=== PATIENT | male | born 1975 | race Caucasian/White ===

== ENCOUNTER 2025-01-30 07:17 | Inpatient (IN) ==
--- NOTE | 2025-01-02 16:13 | PAT Medication Instructions ---
Medication Instructions Date of Service January 02, 2025 Home Medications atorvastatin 10 mg tablet 10 mg PO QAM celecoxib 200 mg capsule 200 mg PO QAM cholecalciferol (vitamin D3) 25 mcg (1,000 unit) capsule (Vitamin D3) 25 mcg PO HS duloxetine 60 mg capsule,delayed release 60 mg PO QAM gabapentin 300 mg capsule 300 mg PO HS lisinopril 10 mg tablet 10 mg PO QAM sertraline 100 mg tablet 200 mg PO QAM tramadol 50 mg tablet 50 mg PO QAM ASK your surgeon for instructions celecoxib 200 mg capsule 200 mg PO QAM DO NOT take the morning of surgery lisinopril 10 mg tablet 10 mg PO QAM Take morning of surgery With a small sip of water, OTHERWISE NOTHING TO EAT OR DRINK AFTER MIDNIGHT: atorvastatin 10 mg tablet 10 mg PO QAM duloxetine 60 mg capsule,delayed release 60 mg PO QAM sertraline 100 mg tablet 200 mg PO QAM tramadol 50 mg tablet 50 mg PO QAM Take evening before surgery cholecalciferol (vitamin D3) 25 mcg (1,000 unit) capsule (Vitamin D3) 25 mcg PO HS gabapentin 300 mg capsule 300 mg PO HS Other Notes If you have any questions please call us at [phone] or [phone] or [phone] or [phone]
--- NOTE | 2025-01-09 11:11 | Anesthesiology Consultation ---
Date of Service January 09, 2025 Assessment & Plan (1) Encounter for pre-operative examination: Chart Review Chart Review: Acceptable Risk for Surgery (pending surgeon ordered PCP clearance ) and Patient seen in Pre Admission Testing - Awaiting surgeon ordered PCP clearance 01/11/25 (Dr Iglesia Bravo- [facility] - please fax preop testing for PCP review Per PAT appt on 01/09/25, no recent illness/disease exposures, illness related symptoms, or recent illness/disease positive tests. Will leave to surgeon's discretion if preop Covid testing needed Teaching & Discussion Pre-Anesthesia Teaching/Discussion Notes: Instructed NPO after midnight before surgery,except medications with 15 cc of water. Medication instructions provided according to the PAT guidelines. History Surgery Operation Date: 01/30/25 07:45 Proposed Procedures p L4-L5 Decompression and Fusion - Leo Mendez DO Height/Weight Height: 6 ft 2 in Weight: 109.7 kg Allergies Allergy/AdvReac Type Severity Reaction Status Date / Time bupropion [From Wellbutrin] AdvReac mood swings Verified 12/29/24 15:01 Medications Home Medications Medication Instructions Recorded Confirmed Last Taken atorvastatin 10 mg tablet 10 mg PO QAM 12/29/24 12/29/24 Unknown celecoxib 200 mg capsule 200 mg PO QAM 12/29/24 12/29/24 Unknown cholecalciferol (vitamin D3) 25 25 mcg PO HS 12/29/24 12/29/24 Unknown mcg (1,000 unit) capsule (Vitamin D3) duloxetine 60 mg capsule,delayed 60 mg PO QAM 12/29/24 12/29/24 Unknown release gabapentin 300 mg capsule 300 mg PO HS 12/29/24 12/29/24 Unknown lisinopril 10 mg tablet 10 mg PO QAM 12/29/24 12/29/24 Unknown sertraline 100 mg tablet 200 mg PO QAM 12/29/24 12/29/24 Unknown tramadol 50 mg tablet 50 mg PO QAM 12/29/24 12/29/24 Unknown Past Medical History Medical History (Updated 01/09/25 @ 14:40 by Tracy Loomis PA-C) Depression History of hypothyroidism on meds years ago, no recent issues or meds TSH WNL 01/09/25 HLD (hyperlipidemia) HTN (hypertension) Sleep apnea CPAP Exercise / Class Metabolic Activity II 4-5 Yardwork/Stairs/Walk up hill (one flight of stairs - no chest pain or SOB ) Past Surgical History Surgical History History of open reduction and internal fixation (ORIF) procedure rt clavicle>hardware intact History of photorefractive keratectomy (PRK) rt/ lt Hx of appendectomy Hx of colonoscopy Hx of right inguinal hernia repair Past Anesthesia History No Hx of Anesthesia Complications and No Family Hx of Anesthesia Complications History of PONV No Hx of PONV and No Hx of Motion Sickness Social History Smoking Status: Former smoker Do You Dip or Chew Tobacco: No Smoking End Date: 2005 Hx Alcohol Use: Yes alcohol intake frequency: holidays/special occasions only Hx Substance Use: Yes substance use type: marijuana Last Used Substance Other:: daily use, vape Review of Systems Patient denies chest pain, shortness of breath, dyspnea on exertion, reflux, cough, wheezing, palpitations. No hx of seizures, stroke, HI. No hx of blood clots or blood transfusions Physical Exam Vital Signs VITALS BP 124/82 P 58 TEMP 97.8 SP02 97% RESP 16 Constitutional no acute distress ENMT Mouth: no TMJ clicking Thyromental Distance: > or= 3.5 Finger Breadths (3.5) Mallampati Class: II Cap to one of the top front teeth Missing molar Neck + limited neck extension and + facial hair (advised to shave/trim ) Respiratory normal respiratory effort; no respiratory distress Auscultation: lungs clear to auscultation bilaterally; no wheezes Cardiovascular Rate/Rhythm: regular rate and regular rhythm Heart Sounds: no murmur Vessels: no carotid bruit Musculoskeletal Spine: + pain with cervical ROM Extremities: extremities normal to inspection Psychiatric Orientation: alert Lab Results Anesthesia Preop Results Results Anesthesia Widget: WBC 4.73 K/ul (4.8-10.8) L 01/09/25 Hgb 16.4 g/dl (14.0-18.0) 01/09/25 Hct 47.1 % (42.0-52.0) 01/09/25 Plt 150 K/uL (130-400) 01/09/25 Na 137 mmol/L (136-145) 01/09/25 K 4.3 mmol/L (3.5-5.1) 01/09/25 Cl 101 mmol/L (98-107) 01/09/25 CO2 30 mmol/L (21-32) 01/09/25 BUN 19 mg/dl (6-23) 01/09/25 Creat 1.01 mg/dl (0.6-1.4) 01/09/25 Glucose Level 102 mg/dl (70-99(Fasting)) H 01/09/25 PT 10.8 Seconds (9.0-12.0) 01/09/25 PTT 28 Seconds (21-31) 01/09/25 INR 1.0 (0.9-1.1) 01/09/25 TSH 1.407 uIu/ml (0.300-4.500) 01/09/25 Urine Color Yellow 01/09/25 Urine Appearance Clear (Clear) 01/09/25 Urine pH 6.0 (4.5-7.5) 01/09/25 Urine Specific Gray 1.024 (1.000-1.030) 01/09/25 Urine Protein Negative (Negative) 01/09/25 Urine Glucose (UA) Negative (Negative) 01/09/25 Urine Ketones Trace (Negative) H 01/09/25 Urine Blood Trace (Negative) H 01/09/25 Urine Nitrite Negative (Negative) 01/09/25 Urine Bilirubin Negative (Negative) 01/09/25 Urine Urobilinogen Negative (Negative) 01/09/25 Urine Leukocyte Esterase Negative (Negative) 01/09/25 Urine WBC (Auto) 0-5 /hpf (0-5) 01/09/25 Urine RBC (Auto) 3-5 /hpf (0-2) H 01/09/25 Urine Hyaline Casts (Auto) 0-2 /lpf (0-2) 01/09/25 Urine Epithelial Cells (Auto) 0-2 /hpf (0-2) 01/09/25 Urine Bacteria (Auto) None Seen (None Seen) 01/09/25 Blood Type A Positive 01/09/25 Antibody Screen NEGATIVE 01/09/25 Testing Electrocardiogram Date: 01/09/25 Findings: + NSR @ (62bpm ) Normal EKG per cardio Chest X-Ray Date: 01/09/25 Findings: + NAD FINDINGS: Heart size and pulmonary vasculature are normal. No consolidation or pleural effusion. There is prior plate-screw fixation of the right clavicle Stress Test Date: 07/28/19 Type: exercise (ECHO) Resting EF: 55-59% Resting LV Function: normal Resting RWMA: + none Exercise ECHO exam is normal without resting LV wall motion abnormalities or inducible ischemia. 11 METS achieved. MPHR 93% Stress EKG response was normal/no evidence of ischemia Mild TR
[2025-01-30] MEDS: LR 60ML/HR IV SCH (07:31)
[2025-01-30] MEDS: CeleBREX 200 MG CAP PO SCH (07:31)
[2025-01-30] MEDS: LR 15ML/HR IV SCH (07:41)
[2025-01-30] MEDS: ACETAMINOPHEN 500 MG TAB PO SCH (07:41)
[2025-01-30] MEDS: GABAPENTIN 900 MG DOSE PO SCH (07:41)
[2025-01-30] MEDS ORDERED: MIDAZOLAM HCL 1 MG/ML 2ML VIAL ONE (08:20)
[2025-01-30] MEDS ORDERED: ROCURONIUM BROMIDE 10 MG/ML 5 ML VIAL IV ONE ×2 (08:20→09:28)
[2025-01-30] MEDS ORDERED: ONDANSETRON INJ 2 MG/ML 2 ML VIAL ONE (08:20)
[2025-01-30] MEDS ORDERED: DEXAMETHASONE SOD INJ 4 MG/ML VIAL ONE ×2 (08:20→09:29)
[2025-01-30] MEDS ORDERED: LIDOCAINE 2% 2 ML VIAL/AMP(20MG/ML) INFIL ONE (08:20)
[2025-01-30] MEDS ORDERED: PROPOFOL IV EMULSION 10 MG/ML 20 ML VIAL IV ONE (08:20)
[2025-01-30] MEDS ORDERED: ATROPINE SULFATE 0.1 MG/ML 10ML SYR IV PRN (08:43)
[2025-01-30] MEDS ORDERED: HYDROmorphone INJ 2 MG/ML SYR/VIAL IV PRN (08:43)
[2025-01-30] MEDS ORDERED: ONDANSETRON INJ 2 MG/ML 2 ML VIAL IV PRN ×2 (08:43→12:15)
[2025-01-30] MEDS ORDERED: PROMETHAZINE HCL 6.25 MG in SODIUM CHLORIDE 0.9% 50 ML IV PRN (08:43)
--- NOTE | 2025-01-30 08:46 | History & Physical Bridge Note ---
Date of Service January 30, 2025 History & Physical Bridge Note I have examined the patient, reviewed the History & Physical and in the interval since the performance of the History & Physical I have noted the following changes of clinical significance: no changes noted
--- NOTE | 2025-01-30 08:47 | History & Physical Report ---
Date of Service January 30, 2025 Assessment & Plan (1) Lumbar disc herniation with radiculopathy: Plan: Decompression fusion L4-L5 History of Present Illness Chief Complaint: Back and leg pain Primary Care Provider: Reggie Turner This is a 49-year-old male presents with chronic persistent back and leg pain after failing course of nonoperative care is here for surgical invention. Allergies Allergy/AdvReac Type Severity Reaction Status Date / Time bupropion [From Wellbutrin] AdvReac mood swings Verified 01/30/25 07:19 Home Medications Medication Instructions Recorded Confirmed Type atorvastatin 10 mg tablet 10 mg PO QAM 12/29/24 01/30/25 History celecoxib 200 mg capsule 200 mg PO QAM 12/29/24 01/30/25 History cholecalciferol (vitamin D3) 25 25 mcg PO DAILY 12/29/24 01/30/25 History mcg (1,000 unit) capsule (Vitamin D3) duloxetine 60 mg capsule,delayed 60 mg PO QAM 12/29/24 01/30/25 History release gabapentin 300 mg capsule 300 mg PO HS 12/29/24 01/30/25 History lisinopril 10 mg tablet 10 mg PO QAM 12/29/24 01/30/25 History sertraline 100 mg tablet 200 mg PO QAM 12/29/24 01/30/25 History tramadol 50 mg tablet 50 mg PO QAM 12/29/24 01/30/25 History Past Med/Surg History Problem List (Updated 01/30/25 @ 08:47 by Leo Mendez DO) Lumbar disc herniation with radiculopathy Encounter for pre-operative examination Medical History (Updated 01/30/25 @ 08:47 by Leo Mendez DO) History of hypothyroidism on meds years ago, no recent issues or meds TSH WNL 01/09/25 Sleep apnea CPAP Depression HLD (hyperlipidemia) HTN (hypertension) Surgical History History of open reduction and internal fixation (ORIF) procedure rt clavicle>hardware intact Hx of right inguinal hernia repair Hx of appendectomy Hx of colonoscopy History of photorefractive keratectomy (PRK) rt/ lt Social History Smoking Status: Former smoker Smoking End Date: 2005; Second Hand Exposure: Yes (hx growing up); Do You Dip or Chew Tobacco: No; Tobacco Cessation Education Requested by Patient: No Hx Alcohol Use: Yes Hx Substance Use: Yes Last Used Substance Other:: daily use, vape Preferred Language: Welsh Communication Ability: Effective Wrapping Machine Operator Required: No Beliefs That Will Affect Care: None Current Living Situation: Spouse Other Information That Helps Us Care for You: No Feels Safe at Home: Yes Safety Concerns: Feels Safe At This Time Assistive Devices: CPAP and Glasses Assistive Devices Comment: reading glasses prn Physical Exam Physical Exam: Patient is alert and oriented Heart regular rhythm Lungs clear Results & Data Results & Data Vital Signs (Past 12 Hours) Vital Signs Temp Pulse Resp BP Pulse Ox O2 Del Method 01/30/25 07:25 36.8 C 63 18 154/98 H 96 Room Air
[2025-01-30] MEDS ORDERED: KETAMINE HCL 10MG/ML SYR ONE (09:32)
[2025-01-30] MEDS: BUPIVACAINE/EPINEPHRINE 0.25% 1:200,000 30 ML VIAL ONE (09:38)
[2025-01-30] MEDS ORDERED: SUGAMMADEX SODIUM 200 MG/2 ML VIAL IV ONE (10:47)
[2025-01-30] MEDS: FLOSEAL HEMOSTATIC MATRIX 10ML TOP ONE (10:47)
[2025-01-30] MEDS: ceFAZolin 330 MG/ML 1 GM VIAL ONE (10:48)
--- NOTE | 2025-01-30 11:01 | Operative Report ---
Post Operative Report Pre & Post Diagnosis Operation Date: 01/30/25 08:35 Pre-Op Diagnosis: #1 lumbar disc herniation with radiculopathy #2 lumbar spondylolisthesis L4-L5 Post-Op Diagnosis: Same I identified the patient and participated in the time-out.: Yes Procedure Operation Date: 01/30/25 08:35 Actual Procedures #1 lumbar decompression with bilateral facetectomies and foraminotomies L4-L5 including removal of free disc fragments. #2 posterior spinal fusion L4-5. #3 placed posterior instrumentation L4-L5 using Mattson. #4 interbody fusion L4-5. #5 placement of Spira 15 x 26 mm x 2 at L4-5. #6 placement locally harvested morselized autograft in the posterior gutters. #7 placement of Proteus combined with Koros bone graft in the posterior lateral gutters and os design interbody space. #8 application of versa wrap over the exposed dura. Surgeon Leo Mendez, Shelf Drier Operator Nora Prescott Estimated Blood Loss 250 Findings Consistent with Post-Op Diagnosis Specimens None Indications This is a 49-year-old male presents by much diagnosis after failing sensor was nonoperative care is here for surgical invention. Description of Procedure Patient was met with identified informed consent obtained. Patient was then taken to the operative suite underwent sedation placed in a prone position on the Jony table atop the Noe frame. All bony promises well-padded eyes inspected to ensure no external pressure placed upon them. This point the lumbar spine was prepped and draped in normal sterile fashion. Sharp dissection with the assistance of Bovie cautery from down to and exposing the lamina transverse processes of L4-L5. From caudal to cephalad fashion complete laminectomy of L4 was performed including bilateral medial facetectomies and foraminotomies addressing severe facet hypertrophy overgrowth and compression combined with large amounts of free disc material that adhered directly to the traversing roots on the right. After complete decompression pedicle screws were placed at L4-L5 bilaterally with assistance of fluoroscopy and the purposes ivania contoured and placed. Believe a transforaminal approach on the right discectomy of L4-L5 was performed endplates created to subcortically bone and a 15 x 26 mm Spira cage tapped in position. Then proceeded to the left transforaminal region at L4-5. Again discectomy performed. Endplates guided to subcortical bleeding bone and a second 15 x 26 mm spiral cage tapped into position. Please note all cages were packed with os design bone graft. The rods were then compressed locked in position bilaterally. The transverse processes of L4-5 burred to subcortical bleeding bone. Proteus, with Koros and local autograft placed in the posterior lateral gutters. Versa wrap placed over the exposed dura. 15 round NICK drain inserted. The incision was then closed with 1 Vicryl the fascia 2-0 Vicryl subcutaneously and 4 Monocryl for final skin closure. Steri-Strips and sterile dressing placed. Patient waken taken to PACU in stable condition. Please note Nora Prescott was present at the entire procedure about the patient positioning complex portion of the surgery and final skin closure. I attest to the content of the Intraoperative Record and any orders documented therein. Any exceptions are noted below.
[2025-01-30] MEDS ORDERED: HYDROmorphone INJ 2 MG/ML SYR/VIAL ONE (11:07)
--- NOTE | 2025-01-30 11:12 | Fluoroscopy Report ---
FL lumbar spine 2-3V CLINICAL HISTORY: L4-L5 DECOMPRESSION AND FUSION COMPARISON STUDY: None FLUOROSCOPY TIME: 12 seconds FLUOROSCOPY IMAGES: 2 EXPOSURE DOSE: 13.484 mGy FINDINGS: Discectomy with laminectomy, posterior interbody rods and screw fusion is noted at what is labeled the L4-L5 interspace. No unexpected opaque foreign bodies are identified. Alignment appears s atisfactory. IMPRESSION: Fluoroscopic assistance as above. ACT 112: Negative or not required by law. Electronically signed by: Onofre Hahn M.D. 01/30/2025 11:11 AM
--- NOTE | 2025-01-30 12:01 | Anesthesiology Progress Note ---
Date of Service January 30, 2025 Anesthesia Post Procedure Vital Signs Vital Signs: Temp Pulse Pulse Resp BP Pulse Ox O2 Del Method 01/30/25 11:59 73 12 155/94 H 95 Nasal Cannula 01/30/25 11:50 36.8 C 77 18 148/91 H 96 Nasal Cannula 01/30/25 11:40 76 14 160/100 H 97 Nasal Cannula 01/30/25 11:30 70 12 156/92 H 97 Nasal Cannula 01/30/25 11:20 81 16 142/88 H 97 Oxymask 01/30/25 11:11 36.0 C L 84 14 176/100 H 96 Oxymask 01/30/25 07:25 36.8 C 63 18 154/98 H 96 Room Air O2 Flow Rate 01/30/25 11:59 2 01/30/25 11:50 2 01/30/25 11:40 2 01/30/25 11:30 2 01/30/25 11:20 4 01/30/25 11:11 6 01/30/25 07:25 Pain Intensity Bilateral Lower Buttock: Pain Intensity: 1 Transfer of Care Handoff Completed per policy Notes Mental Status: alert / awake / arousable Patient Amnestic to Procedure: Yes Nausea / Vomiting: adequately controlled Pain: adequately controlled Airway Patency, RR, SpO2: stable & adequate BP & HR: stable & adequate Hydration State: stable & adequate Anesthetic Complications: no major complications apparent
[2025-01-30] MEDS ORDERED: ONDANSETRON 4 MG OD TAB PO PRN (12:15)
[2025-01-30] MEDS ORDERED: LORazepam 0.5 MG TAB PO PRN (12:15)
[2025-01-30] MEDS ORDERED: DO NOT ADMINISTER PNEUMOCOCCAL VACCINE PRN (12:15)
[2025-01-30] MEDS ORDERED: METOCLOPRAMIDE HCL INJ 5 MG/ML 2 ML VIAL IV PRN (12:15)
[2025-01-30] MEDS: SODIUM CHLORIDE 0.9% 1,000 ML IV SCH (12:15)
[2025-01-30] MEDS ORDERED: diphenhydrAMINE Capsule 25 MG CAP PO PRN (12:15)
[2025-01-30] MEDS ORDERED: LORazepam Inj 0.5 MG in SYRINGE 0.25 ML IV PRN (12:15)
[2025-01-30] MEDS ORDERED: SOD PHOSPHATE/SOD BIPHOSPHATE ENEMA 132 ML BTL PR PRN (12:15)
[2025-01-30] MEDS ORDERED: FAMOTIDINE 20 MG TAB PO PRN (12:15)
[2025-01-30] MEDS ORDERED: DO NOT ADMINISTER FLU VACCINE PRN (12:15)
[2025-01-30] MEDS ORDERED: MAGNESIUM HYDROXIDE SUSP 30 ML UDC PO PRN (12:15)
[2025-01-30] MEDS ORDERED: ACETAMINOPHEN 1,000 MG/100 ML VIAL IV PRN (12:15)
[2025-01-30] MEDS ORDERED: PROMETHAZINE 12.5 MG/50.5 ML BAG IV PRN (12:15)
[2025-01-30] MEDS ORDERED: NALOXONE HCL 0.4 MG/1 ML VIAL/CARP IV PRN (12:15)
--- NOTE | 2025-01-30 12:35 | Consultation ---
<Statement entered by Tato Mcfadden DO - 01/30/25 13:23> I have seen and examined the patient and have discussed the case with the advance practice provider. I have reviewed the advanced practitioner's documentation, and I agree with, and take responsibility for that plan of care. Patient states that pain is fairly well-controlled at this time. Informed patient that he will have plenty of different pain medications to control his pain and that he will need to ask for them Okay to use throat lozenges, some throat irritation from the ET tube Further plan of care as outlined below I spent a total of 14 minutes coordinating, documenting, and providing care for this patient excluding time spent by another provider/QHP. Date of Consultation January 30, 2025 Assessment & Plan (1) S/P spinal surgery: (2) Lumbar disc herniation with radiculopathy: Post op day# 0 S/P L4-L5 decompression and fusion by Dr Vanessa LISA#250ml Pain management per ortho Wound management per ortho PT/OT as appropriate DVT prophylaxis per ortho Incentive spirometry Monitor H&H for acute blood loss anemia; pre-op Hgb: 16 (3) HTN (hypertension): Stable Plan to resume home lisinopril tomorrow (4) HLD (hyperlipidemia): Continue atorvastatin (5) Depression: #Anxiety #Mood disorder Continue sertraline, duloxetine (6) Sleep apnea: CPAP HS DVT Prophylaxis SCDs Disposition per primary service Follows with Dr Bravo, [facility] for routine care Pt was seen and care coordinated with Dr Mcfadden. See addendum Thank you for this consultation. We will follow the patient with you during their hospital stay. You can reach a member of the [facility] Hospitalist Team 03/11 via [facility] History of Present Illness Requesting Physician: Dr Mendez Reason for Consultation: Post op medical management Attending Physician: Leo Mendez DO History of Present Illness Patient is 49 year old male with PMH HTN, dyslipidemia, anxiety, mood disorder, chronic pain, obesity seen in medical consultation s/p decompression, fusion L4- L5 today by Dr Mendez. Post op patient reports doing well and pain ins controlled. Last BM this morning. Does not have Tran catheter in place currently and hasn't urinated yet since post-op. Denies fever/chills, N/V/D/C, EUGENE, dizziness, neck pain, CP, SOB, palpitations, cough, abdominal pain, paresthesias, extremity weakness, extremity edema, rashes, urinary symptoms. Allergies Allergy/AdvReac Type Severity Reaction Status Date / Time bupropion [From Wellbutrin] AdvReac mood swings Verified 01/30/25 07:19 Home Medications Medication Instructions Recorded Confirmed Type atorvastatin 10 mg tablet 10 mg PO QAM 12/29/24 01/30/25 History celecoxib 200 mg capsule 200 mg PO QAM 12/29/24 01/30/25 History cholecalciferol (vitamin D3) 25 25 mcg PO DAILY 12/29/24 01/30/25 History mcg (1,000 unit) capsule (Vitamin D3) duloxetine 60 mg capsule,delayed 60 mg PO QAM 12/29/24 01/30/25 History release gabapentin 300 mg capsule 300 mg PO HS 12/29/24 01/30/25 History lisinopril 10 mg tablet 10 mg PO QAM 12/29/24 01/30/25 History sertraline 100 mg tablet 200 mg PO QAM 12/29/24 01/30/25 History tramadol 50 mg tablet 50 mg PO QAM 12/29/24 01/30/25 History Patient History Medical History History of hypothyroidism on meds years ago, no recent issues or meds TSH WNL 01/09/25 Sleep apnea CPAP Depression HLD (hyperlipidemia) HTN (hypertension) Surgical History History of open reduction and internal fixation (ORIF) procedure rt clavicle>hardware intact Hx of right inguinal hernia repair Hx of appendectomy Hx of colonoscopy History of photorefractive keratectomy (PRK) rt/ lt Family History Father Coronary heart disease Mother Coronary heart disease Social History (Updated 01/30/25 @ 12:54 by Lilo Barton PA-C) Smoking Status: Former smoker Second Hand Exposure: Yes (hx growing up); Do You Dip or Chew Tobacco: No; Hx Alcohol Use: Yes Hx Substance Use: Yes (marijuana) Last Used Substance Other:: daily use, vape Preferred Language: Vincentian Communication Ability: Effective Under Sheriff Required: No Beliefs That Will Affect Care: None Current Living Situation: Spouse Feels Safe at Home: Yes Assistive Devices: CPAP and Glasses Review of Systems Review of Systems: All systems reviewed & are unremarkable except as noted in HPI & below Physical Exam Physical Exam: General: no distress, overweight male Head: normocephalic, atraumatic Eyes: conjunctiva non-injected, anicteric ENT: normal inspection external ears, nose, mucous membranes moist Neck: supple, trachea midline Lungs: clear, no respiratory distress, no wheezing/rhonchi/rales CV: RRR, no murmur, no pretibial edema Abd: normal BS, soft, non-tender Back: surgical dressing in place, NICK drain with serosanguineous drainage; bilateral pedal pushes and pulls intact, sensation to light touch intact bilateral feet Ext: no cyanosis, no calf tenderness Neuro: A&O x 3, no focal deficits noted, normal affect Skin: warm, dry Results & Data Vital Signs (Past 12 Hours) Vital Signs Temp Pulse Pulse Resp BP Pulse Ox O2 Del Method 01/30/25 12:09 64 13 158/99 H 96 Nasal Cannula 01/30/25 11:59 73 12 155/94 H 95 Nasal Cannula 01/30/25 11:50 36.8 C 77 18 148/91 H 96 Nasal Cannula 01/30/25 11:40 76 14 160/100 H 97 Nasal Cannula 01/30/25 11:30 70 12 156/92 H 97 Nasal Cannula 01/30/25 11:20 81 16 142/88 H 97 Oxymask 01/30/25 11:11 36.0 C L 84 14 176/100 H 96 Oxymask 01/30/25 07:25 36.8 C 63 18 154/98 H 96 Room Air O2 Flow Rate 01/30/25 12:09 2 01/30/25 11:59 2 01/30/25 11:50 2 01/30/25 11:40 2 01/30/25 11:30 2 01/30/25 11:20 4 01/30/25 11:11 6 01/30/25 07:25
[2025-01-30] MEDS: HYDROmorphone INJ 0.5 MG/0.5 ML SYR IV PRN (15:30)
[2025-01-30] MEDS: GABAPENTIN 300 MG CAP PO SCH (20:13)
[2025-01-30] MEDS: DOCUSATE SODIUM/SENNA 50/8.6MG TAB PO SCH (20:13)
[2025-01-31] MEDS: POLYETHYLENE (MIRALAX) 17 GM PACK PO SCH (06:19)
[2025-01-31] MEDS: ACETAMINOPHEN 500 MG TAB PO PRN (06:28)
[2025-01-31] MEDS: CHOLECALCIFEROL 25 MCG (1000 UNITS) TAB PO SCH (07:10)
[2025-01-31] MEDS: dexAMETHasone 6 MG in SYRINGE 0 ML IV SCH (07:10)
[2025-01-31] MEDS: SERTRALINE HCL 100 MG TABLET PO SCH (07:10)
[2025-01-31] MEDS: ATORVASTATIN 10 MG TAB PO SCH (07:10)
[2025-01-31 07:14] LABS: Hematocrit (blood only) 40.8 % (42.0-52.0); Hemoglobin 13.5 g/dl (14.0-18.0); Immature Granulocytes # (auto) 0.04 K/uL (0.01-0.20); Immature Granulocytes % (auto) 0.4 %; Mean Corpuscular Hemoglobin 28.4 pg (25.0-34.0); Mean Corpuscular Volume 85.9 fL (80.0-100.0); Platelet Count 140 K/uL (130-400); RDW Standard Deviation 40.8 fL (36.4-46.3); Red Blood Count 4.75 M/uL (4.70-6.10); White Blood Count 8.91 K/ul (4.8-10.8)
[2025-01-31 07:28] LABS: Anion Gap 5.0 (3-11); Blood Urea Nitrogen 13.0 mg/dl (6-23); Calcium 8.9 mg/dl (8.6-10.3); Carbon Dioxide 31.0 mmol/L (21-32); Chloride 103.0 mmol/L (98-107); Creatinine Clr Calc Pharmacy 112.9 ml/min; Glucose 125.0 mg/dl (70-99(Fasting)); Potassium 4.4 mmol/L (3.5-5.1); Sodium 139.0 mmol/L (136-145)
--- NOTE | 2025-01-31 08:34 | Hospitalist Progress Note ---
Date of Service January 31, 2025 Assessment & Plan (1) Lumbar disc herniation with radiculopathy: (2) S/P spinal surgery: (3) Acute blood loss anemia: (4) HTN (hypertension): (5) HLD (hyperlipidemia): (6) Depression: (7) Sleep apnea: Plan 49 year old male with PMH significant for history of hypothyroidism, dyslipidemia, RIC on CPAP, hypertension, depression/anxiety, and lumbar disc herniation with radiculopathy who underwent L4-L5 decompression and fusion on 01/31/[address] Mendez. We have been consulted for post operative medical management. Lumbar disc herniation with radiculopathy POD#1 L4-L5 decompression and fusion on 01/30/[address] Mendez Activity level, pain control, DVT prophylaxis, bowel regimen, wound/drain care per primary team Encourage incentive spirometer PT today went well-> anticipate dc to home Acute blood loss anemia Expected post-operatively Preop Hgb 16.4-> 13.5 today EBL 250mL and NICK drain 430mL so far Patient asymptomatic Monitor CBC Hypertension Continue lisinopril Dyslipidemia Continue atorvastatin Depression/anxiety Continue sertraline and duloxetine RIC on CPAP CPAP HS DVT Prophylaxis: SCDs/TEDs per primary team Code Status: FULL CODE PCP: Iglesia Bravo Disposition: dc to home per primary team Thank you for this consultation. We will continue to follow this patient with you. [facility]/11 via the role in [employer] - please don't hesitate to reach out with questions. Patient seen in collaboration with Dr. Lora. Please see addendum. I spent a total of 50 minutes coordinating, documenting and providing care for this patient excluding time spent in the performance of separately billed services or time spent by another provider/QHP. Admission and Anticipated Discharge Date Admission Date: January 30, 2025 Supervising Physician Co-Signing Physician Notes Patient is seen and examined at bedside. Doing well postoperatively. Denies any significant pain at surgical site.+ Flatus today. Denies any chest pain, dyspnea, nausea, vomiting, abdominal pain. On exam patient is well-built and nourished, no apparent distress, normocephalic atraumatic, EOMI, normal breath sounds, clear to auscultation, S1-S2, no murmur, no pedal edema, abdomen soft, nontender, normal bowel sounds, Back: Surgical site in dressing, drain, alert, awake, oriented, grossly no focal deficits. Patient is consulted for postop medical management. Patient underwent lumbar decompression, fusion surgery by Dr. Mendez for lumbar disc herniation with radiculopathy and lumbar spondylolisthesis L4-L5. Noted postoperative acute blood loss anemia. No indication for blood transfusion currently. Continue bowel regimen to prevent constipation. Monitor CBC. Incentive spirometry. Pain control, DVT prophylaxis, activity as per primary team. Blood pressure stable. I personally interviewed and examined the patient at bedside. I have reviewed the advanced practitioner's documentation on the date of service referred in note and agree with plan. Patient's care is coordinated with Isabell HARTMAN. Please refer to the documentation above for details of patient's presentation and for discussion of other issues. I spent a total [id number] coordinating, documenting, and providing care for this patient excluding time spent in the performance of s eparately billed services or time spent by another provider/QHP. Subjective Patient seen resting in bed Reports discomfort at lumbar incision Denies numbness/tingling down legs which is improved from prior to surgery Ambulated in khalil and did steps with PT Passing gas but no BM yet Denies chest pain, SOB, abdominal pain, N/V Review of Systems Review of Systems: All systems reviewed & are unremarkable except as noted in HPI & below Physical Exam Physical Exam: General/Psych: WD/WN, laying in bed, NAD, conversing easily Head: normocephalic, atraumatic Eyes: normal inspection, PERRL, conjunctivae pink ENT: external ear and nose normal, oropharynx normal Neck: normal visual inspection, trachea midline Respiratory: normal respiratory effort, lungs clear to auscultation, no wheeze/rales/rhonchi, no accessory muscle use Cardiovascular: regular rate and rhythm, no murmur/rub/gallop Extremities: no cyanosis or clubbing, normal peripheral pulses, no BLE edema Abdomen/GI: normal bowel sounds, soft, nontender Neurologic/MSK: A+Ox3, motor strength 5/5, moves all extremities, sensation intact BLE Skin: no rashes, normal color, warm and dry, island dressing c/d/i, NICK drain w ith sanguinous output Results & Data Results & Data Vital Signs (Past 12 Hours) Vital Signs Temp Pulse Resp BP Pulse Ox O2 Del Method 01/31/25 07:00 36.9 C 64 16 141/82 H 98 Room Air 01/31/25 03:00 36.6 C 70 18 116/72 97 Room Air 01/30/25 22:48 37.1 C 76 18 146/65 H 93 Room Air Laboratory Results Short CBC 01/31/25 Range/Units 06:42 WBC 8.91 (4.8-10.8) K/ul Hgb 13.5 L (14.0-18.0) g/dl Hct 40.8 L (42.0-52.0) % Plt Count 140 (130-400) K/uL BMP 01/31/25 06:42 Sodium 139 Potassium 4.4 Chloride 103 Carbon Dioxide 31 BUN 13 Creatinine 1.04 Glucose 125 H Calcium 8.9 I have independently reviewed and interpreted patient's labs including CBC and BMP. Medications Administered Current Inpatient Medications Acetaminophen (Acetaminophen 500 Mg Tab) 1,000 mg PO Q8H PRN PRN Reason: MILD Pain (1,2,3) & Pre PT Stop: 03/01/25 12:14 Last Admin: 01/31/25 06:28 Dose: 1,000 mg Al Hydrox/Mg Hydrox/Simethicone (Aluminum/Magnesium Susp 30 Ml Udc) 30 ml PO Q6H PRN PRN Reason: Dyspepsia Stop: 03/01/25 12:14 Atorvastatin Calcium (Atorvastatin 10 Mg Tab) 10 mg PO QAM [facility] Stop: 03/02/25 08:59 Last Admin: 01/31/25 07:10 Dose: 10 mg Bisacodyl (Bisacodyl 10 Mg Supp) 10 mg KS DAILY PRN PRN Reason: Constipation Stop: 03/01/25 12:14 Diphenhydramine HCl (Diphenhydramine Capsule 25 Mg Cap) 25 mg PO Q6H PRN PRN Reason: Allergic Rhinitis/Insomnia Stop: 03/01/25 12:14 Duloxetine HCl (Duloxetine Hcl 60 Mg Cap) 60 mg PO QAM [facility] Stop: 03/02/25 08:59 Last Admin: 01/31/25 07:10 Dose: 60 mg Famotidine (Famotidine 20 Mg Tab) 20 mg PO Q12H PRN PRN Reason: Dyspepsia Stop: 03/01/25 12:14 Gabapentin (Gabapentin 300 Mg Cap) 300 mg PO HS [facility] Stop: 03/01/25 20:59 Last Admin: 01/30/25 20:13 Dose: 300 mg Hydromorphone HCl (Hydromorphone Inj 0.5 Mg/0.5 Ml Syr) 0.5 mg IV Q3H PRN PRN Reason: MODERATE Pain(4,5,6)/Pre PT Stop: 02/13/25 12:14 Last Admin: 01/31/25 06:28 Dose: 0.5 mg Hydromorphone HCl (Hydromorphone Inj 1 Mg/Ml Syringe) 1 mg IV Q3H PRN PRN Reason: SEVERE Pain (7,8,9,10) Stop: 02/13/25 12:14 Hydroxyzine HCl (Hydroxyzine Hcl 25 Mg Tab) 25 mg PO Q8H PRN PRN Reason: Anxiety Stop: 03/01/25 12:14 Cefazolin Sodium (Ancef 2000mg) 2,000 mg in 15 mls @ 3.75 mls/min IV Q8H [facility] Stop: 02/02/25 09:18 Last Admin: 01/31/25 07:37 Dose: 3.75 mls/min Promethazine HCl (Phenergan) 12.5 mg in 50.5 mls @ 202 mls/hr IV Q6H PRN PRN Reason: Nausea And Vomiting Stop: 03/01/25 12:14 Lorazepam 0.5 mg/ Syringe 0.5 mls @ 2 mls/min IV Q8H PRN PRN Reason: Sedation/Anxiety Stop: 03/01/25 12:14 Dexamethasone 6 mg/ Syringe 1.5 mls @ 1 mls/min IV DAILY [facility] Stop: 02/02/25 09:02 Last Admin: 01/31/25 07:10 Dose: 1 mls/min Influenza Virus Vaccine Quadrival (Do Not Administer Flu Vaccine) 1 each N/A PRN PRN PRN Reason: Notification Stop: 03/01/25 12:14 Ketorolac Tromethamine (Ketorolac 30 Mg/Ml Vial) 30 mg IV Q6H PRN PRN Reason: Pain Lisinopril (Lisinopril 10 Mg Tab) 10 mg PO QAM [facility] Stop: 03/02/25 08:59 Last Admin: 01/31/25 07:10 Dose: 10 mg Lorazepam (Lorazepam 0.5 Mg Tab) 0.5 mg PO Q8H PRN PRN Reason: Sedation/Anxiety Stop: 03/01/25 12:14 Magnesium Hydroxide (Magnesium Hydroxide Susp 30 Ml Udc) 30 ml PO Q24H PRN PRN Reason: Constipation Stop: 03/01/25 12:14 Metoclopramide HCl (Metoclopramide Hcl Inj 5 Mg/Ml 2 Ml Vial) 10 mg IV Q6H PRN PRN Reason: Nausea &/or Vomiting Stop: 03/01/25 12:14 Naloxone HCl (Naloxone Hcl 0.4 Mg/1 Ml Vial/Carp) 0.1 mg IV Q5M PRN PRN Reason: Oversedation/Resp depression Stop: 03/01/25 12:14 Ondansetron HCl (Ondansetron Inj 2 Mg/Ml 2 Ml Vial) 4 mg IV Q6H PRN PRN Reason: Nausea &/or Vomiting Stop: 03/01/25 12:14 Ondansetron HCl (Ondansetron 4 Mg Od Tab) 4 mg PO Q6H PRN PRN Reason: Nausea Stop: 03/01/25 12:14 Oxycodone HCl (Oxycodone Hcl Ir 5 Mg Tab (Immediate Release)) 5 - 10 mg PO Q4H PRN PRN Reason: MOD/SEV Pain & Pre PT Stop: 02/13/25 12:14 Pneumococcal Polyvalent Vaccine (Do Not Administer Pneumococcal Vaccine) 1 each N/A PRN PRN PRN Reason: Notification Stop: 03/01/25 12:14 Polyethylene Glycol (Polyethylene (Miralax) 17 Gm Pack) 17 gm PO Q6 [facility] Stop: 03/02/25 05:59 Last Admin: 01/31/25 06:19 Dose: 17 gm Senna/Docusate Sodium (Docusate Sodium/Senna 50/8.6mg Tab) 2 tab PO HS [facility] Stop: 03/01/25 20:59 Last Admin: 01/30/25 20:13 Dose: 2 tab Sertraline HCl (Sertraline Hcl 100 Mg Tablet) 200 mg PO QAM [facility] Stop: 03/02/25 08:59 Last Admin: 01/31/25 07:10 Dose: 200 mg Sodium Biphosphate/Sodium Phosphate (Sod Phosphate/Sod Biphosphate Enema 132 Ml Btl) 132 ml KS ONE PRN PRN Reason: Constipation Stop: 03/01/25 12:14 Tramadol HCl (Tramadol Hcl 50 Mg Tablet) 50 - 100 mg PO Q4H PRN PRN Reason: MOD/SEV Pain & Pre PT Stop: 03/01/25 12:14 Last Admin: 01/31/25 01:33 Dose: 100 mg Vitamin D (Cholecalciferol 25 Mcg (1000 Units) Tab) 25 mcg PO DAILY [facility] Stop: 03/02/25 08:59 Last Admin: 01/31/25 07:10 Dose: 25 mcg
--- NOTE | 2025-01-31 10:52 | Orthopedic Progress Note ---
Date of Service January 31, 2025 Assessment & Plan (1) Lumbar disc herniation with radiculopathy: Plan: At this time we will continue physical therapy monitor his NICK output hopefully discharge home in the next few days. Admission and Anticipated Discharge Date Admission Date: January 30, 2025 Subjective Back pain is controlled leg pain markedly improved Physical Exam Physical Exam: Patient is comfortable. Good strength testing. Results & Data Vital Signs (Past 12 Hours) Vital Signs Temp Pulse Resp BP Pulse Ox O2 Del Method 01/31/25 07:00 36.9 C 64 16 141/82 H 98 Room Air 01/31/25 03:00 36.6 C 70 18 116/72 97 Room Air
[2025-01-31] MEDS: KETOROLAC 30 MG/ML VIAL IV PRN (17:20)
[2025-01-31] MEDS: ALUMINUM/MAGNESIUM SUSP 30 ML UDC PO PRN (19:49)
[2025-01-31] MEDS: HYDROmorphone INJ 1 MG/ML SYRINGE IV PRN (21:58)
[2025-02-01 00:12] VITALS: RESP 16
[2025-02-01 07:40] VITALS: BP 100/61; PULSE 63; TEMP 97.8; O2SAT 98
[2025-02-01 08:16] LABS: Hematocrit (blood only) 38.2 % (42.0-52.0); Hemoglobin 12.7 g/dl (14.0-18.0); Mean Corpuscular Hemoglobin 28.4 pg (25.0-34.0); Mean Corpuscular Volume 85.5 fL (80.0-100.0); Platelet Count 132 K/uL (130-400); RDW Standard Deviation 40.5 fL (36.4-46.3); Red Blood Count 4.47 M/uL (4.70-6.10); White Blood Count 6.55 K/ul (4.8-10.8)
[2025-02-01 08:41] LABS: Anion Gap 5.0 (3-11); Blood Urea Nitrogen 13.0 mg/dl (6-23); Calcium 8.8 mg/dl (8.6-10.3); Carbon Dioxide 31.0 mmol/L (21-32); Chloride 101.0 mmol/L (98-107); Creatinine Clr Calc Pharmacy 123.6 ml/min; Glucose 103.0 mg/dl (70-99(Fasting)); Potassium 4.4 mmol/L (3.5-5.1); Sodium 137.0 mmol/L (136-145)
--- NOTE | 2025-02-01 09:49 | Discharge Summary ---
Date of Service February 01, 2025 Admission HPI Per Admitting Provider This is a 49-year-old male presents with chronic persistent back and leg pain after failing course of nonoperative care is here for surgical invention. Principal Diagnosis Lumbar disc herniation with radiculopathy Discharge Data Allergies Allergy/AdvReac Type Severity Reaction Status Date / Time bupropion [From Wellbutrin] AdvReac mood swings Verified 01/30/25 07:19 Consultations 01/30/25 12:15 Consult Hospitalist Routine Procedures Performed Operation Date: 01/30/25 08:35 Actual Procedures p L4-L5 Decompression and Fusion(Not Applicable) - Leo Mendez DO Ordered Studies 01/30/25 08:35 FL lumbar spine 2-3V Routine Hospital Course (1) Lumbar disc herniation with radiculopathy: Patient went lumbar decompression fusion trial as well as taken orthopedic for postoperative postop day progressed appropriate. Marked improvement of his pain. Ambulating well. Excellent strength testing. NICK drain decreasing. Subsequent discharge home. Discharge orders instructions from the chart for further review. Total Time Total Time Spent Total Time Spent (In Minutes): 20 minutes Discharge Plan Discharge Items Patient Disposition: Home - Self-Care Reason For Visit: Lumbar Foraminal Stenosis, Lumbar Disc Disease, Pr Discharge Diagnosis: Lumbar disc herniation with radiculopathy Activity: As commented below Non-emergency contact: Primary Care Provider Call non-emergency contact if: you have any medication questions Follow-up/Referrals: Reggie Turner M.D. [Primary Care Provider] - Diet: Regular Addtl Attending Provider Instructions: ACTIVITY RECOMMENDATIONS: SELF CARE INSTRUCTIONS AFTER THORACIC/LUMBAR FUSIONS 1. You may walk to your tolerance. It is good exercise for your legs and back. Expect some back and intermittent leg aches and pains. 2. You may perform "counter-top" level activities (make a sandwich, ronnie with a project, etc.). 3. No bending or lifting of more than 10 pounds or back twisting of any nature (roll like a log when turning in bed). 4. You may ride in a car for 20-30 minutes at a time. No driving until after your first visit with your doctor. 5. Frequent changes of position and restricting sitting to 30 minutes at a time will help limit the amount of back spasms and stiffness you may experience. 6. You may discontinue the use of ambulatory aids (cane, crutches, etc.) once your strength and confidence allow. 7. You may drawer liner the shower and let water strike your incision when you arrive home at least once daily. Do not take a tub bath, sit in a hot tub or go into a swimming pool until after your first recheck in the office. 8. You may resume previous diet. SPECIAL CARE INSTRUCTIONS: VERY IMPORTANT TO READ AND REVIEW A. Your surgical incision has been closed with a cosmetic suture under the skin that will dissolve in about 6 weeks. In 14 days, you can use a pair of clean scissors and cut the suture that is left outside of the skin at the ends of your incision. 1. The small skin tapes can be removed 7 days after surgery if they have not fallen off by that point. 2. You may keep the wound open to air as much as possible to promote healing after post-op day number 5 unless told otherwise by your doctor. 3. If you think the wound looks like it is becoming infected (redness or worsening drainage) and/or you are experiencing fever, chill or worsening back pain and muscle spasms, contact the office so that we may evaluate you as soon as possible. B. Complications are uncommon, but please contact us if you have any signs or symptoms of: 1. wound infection (fever higher than 102.5 degrees F, redness, separation of wound, drainage, or increasing pain from the incision) 2. blood clots in legs (pain, swelling, redness and warmth in legs) 3. urinary tract infection (fever higher than 102.5 degrees F, burning upon urination or increased frequency of urination) 4. nerve problems (inability to walk on your toes or heels, numbness, loss of bowel or bladder control) 5. any other symptoms that concern you C. Please call the office at if you have any concerns or questions about your operation or recovery. D. No smoking! Smoking drastically decreases the chance of a solid fusion. E. Do not take any anti-inflammatory medications (Indocin, Advil, Motrin, Aspirin, Naprosyn, etc.) as these may inhibit the chance of a solid fusion. Tylenol is okay to take for pain. MANAGING PAIN AFTER SPINAL SURGERY 1. Narcotic medication is intended for short-term use and will be provided for surgical pain. Surgical pain usually lasts for a period of 4-6 weeks. Narcotic medication includes Percocet, Vicodin, Darvocet, Tylenol #3 or Lortab. 2. Longer-term pain is more appropriately treated with non-narcotic medication such as Tylenol ES. 3. Muscle spasm is not appropriately treated with narcotics. Muscle relaxers such as Soma, Flexeril or Skelaxin can be used along with Tylenol ES. 4. Remember that we all live with some "aches and pains". This is not unusual or uncommon after an injury or as we get older. a. Back pain is expected and may include muscle spasms for 4 to 6 weeks after surgery. The pain should gradually improve. If the pain worsens for no apparent reason, please contact the office. b. Intermittent leg pain may also be experienced and should not be concerned about unless it worsens for no apparent reason. If so, please contact the office. 5. We will provide appropriate medication within the normal guidelines of their prescribed use. We will also be very cautious and aware of potential abuse and extended duration of patients' medication needs. a. Pain medications are for your comfort and to assist with sleep and rest so that the tissue can heal. They are not provided in order to return to normal activity and should not be used through the day. To do so or worsening pain at night can result from ongoing tissue damage and development of tolerance to the prescribed medicine. 6. Please allow 2-3 days to process refills. Prescriptions will not be mailed but must be picked up at the office. FOLLOW UP VISIT: Keep your scheduled follow-up appointment. Any questions, please call the office at . Pending Studies at Discharge: No Stand-Alone Forms: My [facility] ProspX, Smoking Cessation Medications and DC Order Prescriptions: New tramadol 50 mg tablet 50 mg PO Q6H PRN (Reason: pain, moderate) Qty: 30 0RF oxycodone 5 mg tablet 5 mg PO Q6H PRN (Reason: pain) Qty: 30 0RF Continued celecoxib 200 mg Capsule 200 mg PO QAM atorvastatin 10 mg Tablet 10 mg PO QAM sertraline 100 mg Tablet 200 mg PO QAM tramadol 50 mg Tablet 50 mg PO QAM lisinopril 10 mg Tablet 10 mg PO QAM gabapentin 300 mg Capsule 300 mg PO HS cholecalciferol (vitamin D3) [Vitamin D3] 25 mcg (1,000 unit) Capsule 25 mcg PO DAILY duloxetine 60 mg Capsule,Delayed Release(Dr/Ec) 60 mg PO QAM Discharge Orders: Discharge Order (Routine); Ordered 02/01/25 Ordered By: Leo Mendez Admission Data Admit Date/Time: 01/30/25 11:09 Attending Provider: Leo Mendez Admit Provider: Leo Mendez Primary Care Provider: Reggie Turner Other Providers: Meseret Sánchez; Kris Lora; [place]
--- NOTE | 2025-02-01 11:06 | Hospitalist Progress Note ---
Date of Service February 01, 2025 Assessment & Plan (1) Lumbar disc herniation with radiculopathy: (2) S/P spinal surgery: (3) Acute blood loss anemia: (4) HTN (hypertension): (5) HLD (hyperlipidemia): (6) Depression: (7) Sleep apnea: Plan 49 year old male with PMH significant for history of hypothyroidism, dyslipidemia, RIC on CPAP, hypertension, depression/anxiety, and lumbar disc herniation with radiculopathy who underwent L4-L5 decompression and fusion on 01/31/[address] Mendez. We have been consulted for post operative medical management. Lumbar disc herniation with radiculopathy POD#2 L4-L5 decompression and fusion on 01/30/[address] Mendez Doing well post operatively DC to home today Acute blood loss anemia Expected post-operatively Preop Hgb 16.4-> 13.5-> 12.7 today Patient asymptomatic Hypertension Continue lisinopril Dyslipidemia Continue atorvastatin Depression/anxiety Continue sertraline and duloxetine RIC on CPAP CPAP HS Thank you for this consultation. We will continue to follow this patient with you. [facility]11 via the role in [employer] - please don't hesitate to reach out with questions. Patient seen in collaboration with Dr. Lora. Please see addendum. I spent a total of 40 minutes coordinating, documenting and providing care for this patient excluding time spent in the performance of separately billed services or time spent by another provider/QHP. Admission and Anticipated Discharge Date Admission Date: January 30, 2025 Supervising Physician Co-Signing Physician Notes Patient is seen and examined at bedside. Back pain at surgical site is controlled. Offers no new complaints today. Eager to get discharged. Denies any chest pain, dyspnea, nausea, vomiting, abdominal pain. On exam patient is well-built and nourished, no apparent distress, normocephalic atraumatic, EOMI, normal breath sounds, clear to auscultation, S1-S2, no murmur, no pedal edema, abdomen soft, nontender, normal bowel sounds, Back: Surgical site in dressing, drain, alert, awake, oriented, grossly no focal deficits. Patient is consulted for postop medical management. Patient underwent lumbar decompression, fusion surgery by Dr. Mendez for lumbar disc herniation with radiculopathy and lumbar spondylolisthesis L4-L5. Noted postoperative acute blood loss anemia. No indication for blood transfusion currently. Continue bowel regimen to prevent constipation. Monitor CBC. Incentive spirometry. Pain control, DVT prophylaxis, activity as per primary team. Advised to follow-up with PCP, orthospine on discharge. I personally interviewed and examined the patient at bedside. I have reviewed the advanced practitioner's documentation on the date of service referred in note and agree with plan. Patient's care is coordinated with Isabell HARTMAN. Please refer to the documentation above for details of patient's presentation and for discussion of other issues. I spent a total [id number] coordinating, documenting, and providing care for this patient excluding time spent in the performance of separately billed services or time spent by another provider/QHP. Subjective Patient seen resting in bed Reports discomfort at lumbar incision Denies numbness/tingling down legs which is improved from prior to surgery Ambulating well Had a bowel movement this morning Denies chest pain, SOB, abdominal pain, N/V Review of Systems Review of Systems: All systems reviewed & are unremarkable except as noted in HPI & below Physical Exam Physical Exam: General/Psych: WD/WN, laying in bed, NAD, conversing easily Head: normocephalic, atraumatic Eyes: normal inspection, PERRL, conjunctivae pink ENT: external ear and nose normal, oropharynx normal Neck: normal visual inspection, trachea midline Respiratory: normal respiratory effort, lungs clear to auscultation, no wheeze/rales/rhonchi, no accessory muscle use Cardiovascular: regular rate and rhythm, no murmur/rub/gallop Extremities: no cyanosis or clubbing, normal peripheral pulses, no BLE edema Abdomen/GI: normal bowel sounds, soft, nontender Neurologic/MSK: A+Ox3, motor strength 5/5, moves all extremities, sensation intact BLE Skin: no rashes, normal color, warm and dry, island dressing c/d/i, NICK drain with sanguinous output Results & Data Results & Data Vital Signs (Past 12 Hours) Vital Signs Temp Pulse Resp BP Pulse Ox O2 Del Method 02/01/25 07:50 Room Air 02/01/25 07:39 36.6 C 63 16 100/61 98 CPAP 02/01/25 00:11 36.6 C 73 16 137/69 95 Room Air Laboratory Results Short CBC 02/01/25 Range/Units 08:00 WBC 6.55 (4.8-10.8) K/ul Hgb 12.7 L (14.0-18.0) g/dl Hct 38.2 L (42.0-52.0) % Plt Count 132 (130-400) K/uL BMP 02/01/25 08:00 Sodium 137 Potassium 4.4 Chloride 101 Carbon Dioxide 31 BUN 13 Creatinine 0.95 Glucose 103 H Calcium 8.8 I have independently reviewed and interpreted patient's labs including CBC and BMP. Medications Administered Current Inpatient Medications Acetaminophen (Acetaminophen 500 Mg Tab) 1,000 mg PO Q8H PRN PRN Reason: MILD Pain (1,2,3) & Pre PT Stop: 03/01/25 12:14 Last Admin: 02/01/25 05:46 Dose: 1,000 mg Al Hydrox/Mg Hydrox/Simethicone (Aluminum/Magnesium Susp 30 Ml Udc) 30 ml PO Q6H PRN PRN Reason: Dyspepsia Stop: 03/01/25 12:14 Last Admin: 01/31/25 19:49 Dose: 30 ml Atorvastatin Calcium (Atorvastatin 10 Mg Tab) 10 mg PO QAM SELENE Stop: 03/02/25 08:59 Last Admin: 02/01/25 09:13 Dose: 10 mg Bisacodyl (Bisacodyl 10 Mg Supp) 10 mg GA DAILY PRN PRN Reason: Constipation Stop: 03/01/25 12:14 Diphenhydramine HCl (Diphenhydramine Capsule 25 Mg Cap) 25 mg PO Q6H PRN PRN Reason: Allergic Rhinitis/Insomnia Stop: 03/01/25 12:14 Duloxetine HCl (Duloxetine Hcl 60 Mg Cap) 60 mg PO QAM SELENE Stop: 03/02/25 08:59 Last Admin: 02/01/25 09:13 Dose: 60 mg Famotidine (Famotidine 20 Mg Tab) 20 mg PO Q12H PRN PRN Reason: Dyspepsia Stop: 03/01/25 12:14 Gabapentin (Gabapentin 300 Mg Cap) 300 mg PO HS SELENE Stop: 03/01/25 20:59 Last Admin: 01/31/25 20:10 Dose: 300 mg Hydromorphone HCl (Hydromorphone Inj 0.5 Mg/0.5 Ml Syr) 0.5 mg IV Q3H PRN PRN Reason: MODERATE Pain(4,5,6)/Pre PT Stop: 02/13/25 12:14 Last Admin: 01/31/25 16:45 Dose: 0.5 mg Hydromorphone HCl (Hydromorphone Inj 1 Mg/Ml Syringe) 1 mg IV Q3H PRN PRN Reason: SEVERE Pain (7,8,9,10) Stop: 02/13/25 12:14 Last Admin: 02/01/25 09:10 Dose: 1 mg Hydroxyzine HCl (Hydroxyzine Hcl 25 Mg Tab) 25 mg PO Q8H PRN PRN Reason: Anxiety Stop: 03/01/25 12:14 Cefazolin Sodium (Ancef 2000mg) 2,000 mg in 15 mls @ 3.75 mls/min IV Q8H SELENE Stop: 02/02/25 09:18 Last Admin: 02/01/25 10:53 Dose: 3.75 mls/min Promethazine HCl (Phenergan) 12.5 mg in 50.5 mls @ 202 mls/hr IV Q6H PRN PRN Reason: Nausea And Vomiting Stop: 03/01/25 12:14 Lorazepam 0.5 mg/ Syringe 0.5 mls @ 2 mls/min IV Q8H PRN PRN Reason: Sedation/Anxiety Stop: 03/01/25 12:14 Dexamethasone 6 mg/ Syringe 1.5 mls @ 1 mls/min IV DAILY [facility] Stop: 02/02/25 09:02 Last Admin: 02/01/25 10:06 Dose: 1 mls/min Influenza Virus Vaccine Quadrival (Do Not Administer Flu Vaccine) 1 each N/A PRN PRN PRN Reason: Notification Stop: 03/01/25 12:14 Ketorolac Tromethamine (Ketorolac 30 Mg/Ml Vial) 30 mg IV Q6H PRN PRN Reason: Pain Last Admin: 01/31/25 17:20 Dose: 30 mg Lisinopril (Lisinopril 10 Mg Tab) 10 mg PO QAM [facility] Stop: 03/02/25 08:59 Last Admin: 02/01/25 09:13 Dose: 10 mg Lorazepam (Lorazepam 0.5 Mg Tab) 0.5 mg PO Q8H PRN PRN Reason: Sedation/Anxiety Stop: 03/01/25 12:14 Magnesium Hydroxide (Magnesium Hydroxide Susp 30 Ml Udc) 30 ml PO Q24H PRN PRN Reason: Constipation Stop: 03/01/25 12:14 Metoclopramide HCl (Metoclopramide Hcl Inj 5 Mg/Ml 2 Ml Vial) 10 mg IV Q6H PRN PRN Reason: Nausea &/or Vomiting Stop: 03/01/25 12:14 Naloxone HCl (Naloxone Hcl 0.4 Mg/1 Ml Vial/Carp) 0.1 mg IV Q5M PRN PRN Reason: Oversedation/Resp depression Stop: 03/01/25 12:14 Ondansetron HCl (Ondansetron Inj 2 Mg/Ml 2 Ml Vial) 4 mg IV Q6H PRN PRN Reason: Nausea &/or Vomiting Stop: 03/01/25 12:14 Ondansetron HCl (Ondansetron 4 Mg Od Tab) 4 mg PO Q6H PRN PRN Reason: Nausea Stop: 03/01/25 12:14 Oxycodone HCl (Oxycodone Hcl Ir 5 Mg Tab (Immediate Release)) 5 - 10 mg PO Q4H PRN PRN Reason: MOD/SEV Pain & Pre PT Stop: 02/13/25 12:14 Last Admin: 01/31/25 17:20 Dose: 5 mg Pneumococcal Polyvalent Vaccine (Do Not Administer Pneumococcal Vaccine) 1 each N/A PRN PRN PRN Reason: Notification Stop: 03/01/25 12:14 Polyethylene Glycol (Polyethylene (Miralax) 17 Gm Pack) 17 gm PO Q6 ESLENE Stop: 03/02/25 05:59 Last Admin: 02/01/25 05:46 Dose: 17 gm Senna/Docusate Sodium (Docusate Sodium/Senna 50/8.6mg Tab) 2 tab PO HS SELENE Stop: 03/01/25 20:59 Last Admin: 01/31/25 20:10 Dose: 2 tab Sertraline HCl (Sertraline Hcl 100 Mg Tablet) 200 mg PO QAM SELENE Stop: 03/02/25 08:59 Last Admin: 02/01/25 09:13 Dose: 200 mg Sodium Biphosphate/Sodium Phosphate (Sod Phosphate/Sod Biphosphate Enema 132 Ml Btl) 132 ml GA ONE PRN PRN Reason: Constipation Stop: 03/01/25 12:14 Tramadol HCl (Tramadol Hcl 50 Mg Tablet) 50 - 100 mg PO Q4H PRN PRN Reason: MOD/SEV Pain & Pre PT Stop: 03/01/25 12:14 Last Admin: 01/31/25 01:33 Dose: 100 mg Vitamin D (Cholecalciferol 25 Mcg (1000 Units) Tab) 25 mcg PO DAILY SELENE Stop: 03/02/25 08:59 Last Admin: 02/01/25 09:13 Dose: 25 mcg
== END 2025-02-01 13:21 | disposition home health service (06) | DRG 402 ==
LOC: ASU 07:17 → 3W 11:09 → 3N 01-31 16:46